=== PATIENT | male | born 1965 ===

== ENCOUNTER → 2022-02-12 12:58 | Outpatient (BNVA) | payer MEDICARE, MEDICAID, SELFPAY | PROVIDERS: PCP Internal Medicine; Visit Provider Psychiatry & Neurology Neurology | DX: G25.5 Other chorea (principal); G21.19 Other drug induced secondary parkinsonism; E88.01 Alpha-1-antitrypsin deficiency | CPT/HCPCS: 99212 ==

== ENCOUNTER → 2022-08-10 14:00 | Outpatient (BNVA) | payer MEDICARE, MEDICAID, SELFPAY | PROVIDERS: PCP Internal Medicine; Visit Provider Psychiatry & Neurology Neurology | DX: G25.5 Other chorea (principal); G21.19 Other drug induced secondary parkinsonism; E88.01 Alpha-1-antitrypsin deficiency | CPT/HCPCS: 99212 ==